=== PATIENT | male | born 1990 | race Two or more races ===

== ENCOUNTER 2018-11-01 01:32 | Emergency (ER) | payer SELFPAY ==
[2018-11-01] MEDS ORDERED: Sodium Chloride 0.9% 1,000 ML IV ONE (01:45)
[2018-11-01 02:10] LABS: CHLORIDE,CL 101 mmol/L (98-107); SODIUM,NA 140 mmol/L (136-148)
[2018-11-01] MEDS ORDERED: Diphtheria,Pertussis(Acell),Tetanus Vaccine 0.5 ML Syringe IM ONE (02:32)
[2018-11-01] MEDS ORDERED: cefTRIAXone 1 GM Vial IM ONE (02:32)
[2018-11-01] MEDS ORDERED: cefTRIAXone 1 GM in Premix Bag 1 BAG IV ONE (02:34)
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
--- NOTE | 2018-11-01 03:09 | CR ---
Indication: Chest pain, shortness of breath Technique: Chest 1 view Comparison: None Findings/Impression: Cardiovascular and mediastinum: Heart size and vasculature are normal in caliber and appearance. Mediastinum is within normal limits. Lungs and pleural space: Lungs are clear. No sign of infiltrate or mass. No sign of pleural effusion. No pneumothorax. Bones and soft tissues: No significant findings. Dictated by Sunitha Thompson MD @ Nov 01 2018 3:07AM Signed by Dr. Sunitha Thompson @ Nov 01 2018 3:08AM
[2018-11-01] MEDS ORDERED: Ziprasidone Mesylate 20 MG Vial ONE (03:24)
[2018-11-01] MEDS ORDERED: Ziprasidone Mesylate 20 MG Vial IM ONE (03:25)
[2018-11-01] MEDS ORDERED: Water For Injection, Sterile 20 ML SDV INJECT ONE (03:25)
[2018-11-01] MEDS ORDERED: Water For Injection, Sterile 20 ML ONE (03:26)
[2018-11-01] MEDS ORDERED: Sodium Chloride 0.9% 1,000 ML IV SCH (05:00)
--- NOTE | 2018-11-04 08:25 | CT ---
EXAM DATE: 11/01/18 PATIENT'S AGE: 28 Patient: ERIBERTO GIORDANO Facility: [facility] [place] : 1990 Study: CT-Head [id number] 2:08:53 AM Ordering Physician: BARRETT POSEY Final Report: INDICATION: Trauma TECHNIQUE: CT head without contrast. COMPARISON: None FINDINGS: CSF spaces: Within normal limits for age. Brain parenchyma: The gotti-white differentiation is normal. No sign of hemorrhage or midline shift. Left posterior fossa arachnoid cyst. Skull base and calvarium: The visualized paranasal sinuses and mastoid air cells demonstrate no acute or significant findings. The visualized orbits are grossly unremarkable. There is a small left lateral scalp contusion within underline, minimally displaced left temporal skull fracture which extends into the left mastoid air cells. Small amount of fluid within the mastoid air cells. There is a single dot of pneumocephalus. IMPRESSION: Minimally displaced left temporal skull fracture. The fracture extends into the left mastoid air cells. Small amount of pneumocephalus. No intracranial hemorrhage. Consider temporal bone CT for further evaluation of the fracture. Please note that all CT scans at this facility use dose modulation, iterative reconstruction, and/or weight-based dosing when appropriate to reduce radiation dose to as low as reasonably achievable. Dictated by Sunitha Thompson MD @ Nov 01 2018 2:19AM ----- ADDENDUM ----- Addendum: These findings were discussed with Dr. Posey at 2:25 a.m. on November 01, 2018. Dictated by Sunitha Thompson MD @ Nov 01 2018 2:24AM Signed by: Sunitha Thompson MD @11/01/2018 2:25:10 AM (Electronic Signature) Report Signed by Proxy. [facility]
--- NOTE | 2018-11-04 08:26 | CT ---
EXAM DATE: 11/01/18 PATIENT'S AGE: 28 Patient: ERIBERTO GIORDANO Facility: [facility] Site Site : 1990 Study: CT-Spine Cervical [id number] 2:10:26 AM Ordering Physician: BARRETT RICE Final Report: INDICATION: Trauma TECHNIQUE: CT cervical spine without contrast. COMPARISON: None FINDINGS: Vertebral alignment: Alignment is normal. Vertebrae: There are no fractures or suspicious bony lesions. Discs and facet joints: No significant degenerative changes. Extraspinal findings: Minimally displaced left temporal bone fracture with small amount of pneumocephalus and mastoid air cell opacification. IMPRESSION: No cervical spine fracture or subluxation. Minimally displaced left temporal bone fracture with small amount of pneumocephalus and mastoid air cell opacification. These findings were discussed with Dr. Rice at 2:25 a.m. on November 01, 2018. Please note that all CT scans at this facility use dose modulation, iterative reconstruction, and/or weight-based dosing when appropriate to reduce radiation dose to as low as reasonably achievable. Dictated by Sunitha Thompson MD @ Nov 01 2018 2:19AM Signed by: Sunitha Thompson MD @11/01/2018 2:24:20 AM (Electronic Signature) Report Signed by Proxy. [facility]
== END 2018-11-01 05:06 ==
LOC: MW.ED 01:32
DX: S02.19XA Other fracture of base of skull, initial encounter for closed fracture (principal); F10.129 Alcohol abuse with intoxication, unspecified; Y90.8 Blood alcohol level of 240 mg/100 ml or more; G93.89 Other specified disorders of brain; Z23 Encounter for immunization; F17.210 Nicotine dependence, cigarettes, uncomplicated; H91.92 Unspecified hearing loss, left ear; Y04.8XXA Assault by other bodily force, initial encounter
CPT/HCPCS: 36415; 70450; 71045; 72125; 80053; 85025; 85610; 90471; 90715; 96372; 96374; 99285; G0480; J0696; J3486; J7040